=== PATIENT | male | born 1960 | race Caucasian/White ===

== ENCOUNTER 2018-03-25 07:30 | Day surgery (SDC) | payer BC ==
[2018-03-25] MEDS ORDERED: Ringers Lactate 1,000 ML IV ONE ×2 (07:56→09:51)
[2018-03-25] MEDS ORDERED: LIDOCAINE 1% MPF 30 ML VIAL ONE (08:41)
[2018-03-25] MEDS ORDERED: PROPOFOL 200 MG/20 ML VIAL IV ONE ×3 (08:41→09:51)
--- NOTE | 2018-03-25 10:45 | ENDO RPT ---
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 ESTIMATED BLOOD LOSS: None CONSENT: The patient understands the risks and benefits of the procedure and understands that these risks include, but are not limited to: sedation, allergic reaction, infection, perforation and/or bleeding. Alternative means of evaluation and treatment include, among others: physical exam, x-rays, and/or surgical intervention. The patient elects to proceed with this endoscopic procedure. DESCRIPTION OF PROCEDURE: During intra-op preparation period all mechanical medical equipment was checked for proper function. Hand hygiene and appropriate measures for infection prevention was taken. Procedure, possible complications, alternatives including, but not limited to possibility of bleeding, perforation, tear, infection, sepsis, need for surgery, need for blood transfusion, were explained to the patient. After the risks, benefits and alternatives of the procedure were thoroughly explained, Informed consent was verified, confirmed and timeout was successfully executed by the treatment team. The patient was placed in the left lateral position. A digital rectal exam was performed and revealed external hemorrhoids and A digital rectal exam was performed and revealed internal hemorrhoids. After appropriate level of anesthesia, the scope was passed. The EC-[id number] ([id number]) endoscope was introduced through the anus and advanced to the cecum, which was identified by both the appendix and ileocecal valve. The quality of the prep was fair. The instrument was then slowly withdrawn as the colon was fully examined. Scope withdrawal time was 12 minutes. COLON FINDINGS: Long Redundant Colon. Moderate diverticulosis was noted throughout the entire examined colon. No bleeding was noted from the diverticulosis. Small internal and external hemorrhoids were found. Retroflexed views revealed no abnormalities. The scope was then completely withdrawn from the patient and the procedure terminated. ADVERSE EVENTS: There were no complications. IMPRESSIONS: 1. Long Redundant Colon 2. Moderate diverticulosis was noted throughout the entire examined colon 3. Small internal and external hemorrhoids RECOMMENDATIONS: 1. avoid NSAIDS for 2 weeks 2. low fiber / diverticular diet 3. yearly hemoccult starting in 4 years RECALL: Return in 5 year(s) for Colonoscopy. Wellington Ga DR eSigned: Wellington Ga DR 03/25/2018 9:54 AM cc: CPT CODES: ICD9 CODES: PATIENT NAME: Stanislaw Singleton MR#: [id number]
== END 2018-03-25 10:43 | disposition home or self-care (01) ==
LOC: OR 07:30
PROVIDERS: ATTEND Surgery
PROC: 0DJD8ZZ Inspection of Lower Intestinal Tract, Via Natural or Artificial Opening Endoscopic (ICD-10-PCS; principal; 2018-03-25 08:30)
DX: Z12.11 Encounter for screening for malignant neoplasm of colon (principal); K57.90 Diverticulosis of intestine, part unspecified, without perforation or abscess without bleeding; K64.8 Other hemorrhoids; K64.4 Residual hemorrhoidal skin tags; Q43.8 Other specified congenital malformations of intestine; E78.2 Mixed hyperlipidemia; I10 Essential (primary) hypertension; E78.00 Pure hypercholesterolemia, unspecified; I25.10 Atherosclerotic heart disease of native coronary artery without angina pectoris; I25.2 Old myocardial infarction; Z82.49 Family history of ischemic heart disease and other diseases of the circulatory system; Z80.1 Family history of malignant neoplasm of trachea, bronchus and lung; Z80.8 Family history of malignant neoplasm of other organs or systems
CPT/HCPCS: J2704

== ENCOUNTER 2018-09-12 17:41 | Observation (INO) | payer BC ==
--- OUTSIDE RECORDS SUMMARY | 2018-09-12 17:43 | XMS REPORT ---
:1960 Author Organization eClinicalWorks Care Team Providers Name Role Phone Yoan Guevara Provider Role Unavailable Allergies, Adverse Reactions, Alerts Substance Reaction Event Type N.K.D.A. Info Not Available Non Drug Allergy Problems Problem Type Condition Code Onset Dates Condition Status Assessment HTN (hypertension), benign I10 Active Assessment Scrotal mass N50.9 Active Assessment Stented coronary artery Z95.5 Active Assessment Perforation of right tympanic H72.91 Active membrane Assessment Coronary artery disease involving I25.10 Active chitina coronary artery of chitina heart without angina pectoris Problem History of heart attack I25.2 Active Problem Stented coronary artery Z95.5 Active Problem HTN (hypertension), benign I10 Active Assessment Mixed hyperlipidemia E78.2 Active Problem Mixed hyperlipidemia E78.2 Active Problem Coronary artery disease involving I25.10 Active chitina coronary artery of chitina heart without angina pectoris Medications Medication Code Code Instructions Start End Status Dosage System Date Date Ciprodex [facility] 07566532199 0.3-0.1 % Otic Apr 07, Active 4 drops Twice a day 2018 into affected ear Carly Aspirin EC ND 60557362237 81 MG Orally Active 1 tablet Low Dose Once a day Atorvastatin ND 89797309416 80 MG Orally Active 1 tablet Calcium Once a day Results No Known Results Summary Purpose eClinicalWorks Submission
[2018-09-12 18:30] LABS: Absolute Monocytes 0.6 K/uL (0.1-1.3); Absolute Neutrophil 3.5 K/uL (1.8-8.0); Basophils % 0.3 % (0-1.3); Eosinophils % 2.8 % (0-4.4); Hematocrit 48.8 % (39.6-49.0); Lymphocytes % 31.8 % (15.3-44.8); MPV 7.8 fL (7.6-11.3); Monocytes % 9.3 % (3.3-12.3); RBC Red Blood Cell Count 5.24 M/uL (4.33-5.43)
--- NOTE | 2018-09-12 18:32 | RAD REPORT ---
EXAM DESCRIPTION: [place] Single View09/12/2018 6:24 pm CLINICAL HISTORY: Chest pain COMPARISON: none FINDINGS: The lungs appear clear of acute infiltrate. The heart is normal size Mild elevation right hemidiaphragm
[2018-09-12 18:36] LABS: Protime INR 0.91
[2018-09-12 18:47] LABS: ALT/SGPT 50 U/L (12-78); AST/SGOT 25 U/L (15-37); Albumin 4.2 g/dL (3.4-5.0); Alkaline Phosphatase 87 U/L (45-117); BUN Blood Urea Nitrogen 15 mg/dL (7-18); Bicarbonate 27 mmol/L (21-32); Bilirubin Direct 0.2 mg/dL (0-0.2); Bilirubin Total 0.8 mg/dL (0.2-1.0); Glucose Level 114 mg/dL (74-106); Magnesium 2.2 mg/dL (1.8-2.4); NT PRO-BNP 6 pg/mL (<125); Potassium 3.9 mmol/L (3.5-5.1); Protein, Total 6.8 g/dL (6.4-8.2); Sodium Level 142 mmol/L (136-145); Troponin (Emerg Dept Use Only) < 0.02 ng/mL (0.0-0.045)
--- NOTE | 2018-09-12 19:20 | ER ---
Nurse's Notes [facility] Name: Stanislaw Singleton Age: 57 yrs Sex: Male : 1960 Arrival Date: 09/12/2018 Time: 17:42 Bed 26 Private MD: Yoan Guevara Diagnosis: Chest pain, unspecified Presentation: 09/12 17:46 Presenting complaint: Patient states: "I've been having back pains and chest pains aj1 especially when I move and the pain start in the back and its shoots though my body. Its in my ribs, its in my back, its in my chest, its everywhere" Reports that it has been going on for the past couple weeks but has been more severe over the past 4 days. Denies recent illness. Transition of care: patient was not received from another setting of care. Onset of symptoms was September 07, 2018. Risk Assessment: Do you want to hurt yourself or someone else? Patient reports no desire to harm self or others. Initial Sepsis Screen: Does the patient meet any 2 criteria? No. Patient's initial sepsis screen is negative. Does the patient have a suspected source of infection? No. Patient's initial sepsis screen is negative. Care prior to arrival: None. 17:46 Method Of Arrival: Ambulatory aj1 17:46 Acuity: ANABELA 3 aj1 Triage Assessment: 17:50 General: Appears in no apparent distress. comfortable, Behavior is calm, cooperative, aj1 appropriate for age. Pain: Complains of pain in back and chest Pain currently is 2 out of 10 on a pain scale. Neuro: Level of Consciousness is awake, alert, obeys commands, Oriented to person, place, time, situation. Cardiovascular: Reports chest pain, Patient's skin is warm and dry. Respiratory: Airway is patent Respiratory effort is even, unlabored, Respiratory pattern is regular, symmetrical. Historical: - Allergies: 17:49 No Known Allergies; aj1 - Home Meds: 17:49 atorvastatin oral oral [Active]; Aspirin Oral [Active]; aj1 - PMHx: 17:49 Myocardial infarction; aj1 17:50 cardiac stents; aj1 - Immunization history:: Flu vaccine is up to date. - Social history:: Smoking status: Patient/guardian denies using tobacco, Patient/guardian denies using alcohol, street drugs, The patient lives with family. - Ebola Screening: : Patient denies travel to an Ebola-affected area in the 21 days before illness onset. - Family history:: not pertinent. - Hospitalizations: : No recent hospitalization is reported. Screenin:00 Abuse screen: Denies threats or abuse. Denies injuries from another. Nutritional ca1 screening: No deficits noted. Tuberculosis screening: No symptoms or risk factors identified. Fall Risk None identified. Assessment: 18:00 General: Appears in no apparent distress. comfortable, Behavior is calm, cooperative, ca1 appropriate for age. Pain: Complains of pain in right supraclavicular area, right clavicle, anterior aspect of right upper chest and diaphragm Pain radiates to back Pain currently is 4 out of 10 on a pain scale. at worst was 7 out of 10 on a pain scale. Quality of pain is described as throbbing, Pain began 2-3 days ago. Is intermittent. Neuro: Level of Consciousness is awake, alert, obeys commands, Oriented to person, place, time, situation. Cardiovascular: Heart tones S1 S2 present Capillary refill < 3 seconds Patient's skin is warm and dry. Rhythm is sinus rhythm. Respiratory: Airway is patent Respiratory effort is even, unlabored, Respiratory pattern is regular, symmetrical, Breath sounds are clear bilaterally. GI: Abdomen is flat, non-distended, Bowel sounds present X 4 quads. Abd is soft and non tender X 4 quads. : No deficits noted. No signs and/or symptoms were reported regarding the genitourinary system. EENT: No deficits noted. No signs and/or symptoms were reported regarding the EENT system. Derm: Skin is intact, is healthy with good turgor, Skin is pink, warm \\T\\ dry. Musculoskeletal: Circulation, motion, and sensation intact. Capillary refill < 3 seconds, Range of motion: intact in all extremities. 19:00 Reassessment: Patient appears in no apparent distress at this time. Patient and/or ca1 family updated on plan of care and expected duration. Pain level reassessed. Patient is alert, oriented x 3, equal unlabored respirations, skin warm/dry/pink. 19:47 Reassessment: Patient appears in no apparent distress at this time. Patient is alert, ca1 oriented x 3, equal unlabored respirations, skin warm/dry/pink. Pending room assignment. 20:40 Reassessment: Patient appears in no apparent distress at this time. Patient and/or ca1 family updated on plan of care and expected duration. Pain level reassessed. Patient is alert, oriented x 3, equal unlabored respirations, skin warm/dry/pink. 21:10 Reassessment: Patient appears in no apparent distress at this time. Patient is alert, ca1 oriented x 3, equal unlabored respirations, skin warm/dry/pink. Pt wheeled to 4th by naval special warfare medic. Pt is with family. Vital Signs: 17:50 BP 142 / 81; Pulse 80; Resp 18; Temp 98.2(O); Pulse Ox 96% on R/A; Weight 79.38 kg (R); aj1 Height 6 ft. 0 in. (182.88 cm) (R); Pain 2/10; 18:30 BP 148 / 94; Pulse 75; Resp 16 S; Pulse Ox 97% on R/A; ca1 19:00 BP 129 / 82; Pulse 18; Resp 18 S; Temp 98.1(O); Pulse Ox 96% on R/A; ca1 19:30 BP 140 / 87; Pulse 70; Resp 18 S; Temp 98.1(O); Pulse Ox 95% on R/A; ca1 20:40 BP 137 / 93; Pulse 63; Resp 17 S; Temp 98(O); Pulse Ox 96% on R/A; ca1 21:10 BP 132 / 88; Pulse 69; Resp 16 S; Temp 98.1(O); Pulse Ox 96% on R/A; ca1 17:50 Body Mass Index 23.73 (79.38 kg, 182.88 cm) aj1 ED Course: 17:42 Patient arrived in ED. as 17:42 Yoan Guevara DO is Private Physician. as 17:48 Triage completed. aj1 17:50 Arm band placed on Patient placed in an exam room. aj1 17:57 Jose Luis Orr MD is Attending Physician. ma2 18:00 Patient has correct armband on for positive identification. Placed in gown. Bed in low ca1 position. Call light in reach. Side rails up X 1. relief operator on. Pulse ox on. NIBP on. Warm blanket given. 18:05 Patient maintains SpO2 saturation greater than 95% on room air. ca1 18:05 Inserted saline lock: 20 gauge in right antecubital area, using aseptic technique. ca1 Blood collected. 18:23 XRAY Chest (1 view) In Process Unspecified. EDMS 18:37 Pascale Obregon, SUSU is Primary Nurse. ca1 19:19 Jose Luis Lantigua MD is Hospitalizing Provider. ma2 19:43 No provider procedures requiring assistance completed. Patient admitted, IV remains in ca1 place. Administered Medications: 19:25 Drug: Aspirin Chewable Tablet 324 mg Route: PO; ca1 20:41 Follow up: Response: No adverse reaction ca1 Outcome: 19:19 Decision to Hospitalize by Provider. ma2 21:09 Admitted to Tele accompanied by tech, family with patient, via wheelchair, room 420, ca1 with chart, Report called to Lula Emmanuel RN 21:09 Condition: stable 21:09 Instructed on the need for admit. 21:41 Patient left the ED. bb Signatures: Dispatcher [employer] EDMS Sarah Acevedo RN RN Lo Castro as Natali Crockett RN RN bb Jose Luis Orr MD MD [facility] Pascale Obregon, SUSU RN ca1
--- NOTE | 2018-09-12 19:20 | EDPHYS ---
Physician Documentation [facility] Name: Stanislaw Singleton Age: 57 yrs Sex: Male : 1960 Arrival Date: 09/12/2018 Time: 17:42 Bed 26 Private MD: Ismael [facility] ED Physician Jose Luis Orr HPI: 09/12 18:19 This 57 yrs old Male presents to ER via Ambulatory with complaints of Chest ma2 Pain, Back Pain, High Blood Pressure. 18:19 The patient or guardian reports chest pain that is located primarily in the anterior ma2 chest wall, chest diffusely. Onset: gradually, 2 day(s) ago. Associated signs and symptoms: Pertinent positives: Pertinent negatives: abdominal pain, dizziness, lower extremity pain, lightheadedness, nausea. The chest pain is described as aching. Duration: The patient or guardian reports multiple episodes. Severity of pain: At its worst the pain was moderate in the emergency department the pain is unchanged. Historical: - Allergies: 17:49 No Known Allergies; aj1 - Home Meds: 17:49 atorvastatin oral oral [Active]; Aspirin Oral [Active]; aj1 - PMHx: 17:49 Myocardial infarction; aj1 17:50 cardiac stents; aj1 - Immunization history:: Flu vaccine is up to date. - Social history:: Smoking status: Patient/guardian denies using tobacco, Patient/guardian denies using alcohol, street drugs, The patient lives with family. - Ebola Screening: : Patient denies travel to an Ebola-affected area in the 21 days before illness onset. - Family history:: not pertinent. - Hospitalizations: : No recent hospitalization is reported. ROS: 18:19 Constitutional: Negative for fever, chills, and weight loss, Respiratory: Negative for ma2 shortness of breath, cough, wheezing, and pleuritic chest pain. 18:19 ENT: Negative for injury, pain, and discharge, Neck: Negative for injury, pain, and swelling, Abdomen/GI: Negative for abdominal pain, nausea, diarrhea, and constipation, Back: Negative for injury and pain, Skin: Negative for injury, rash, and discoloration, Neuro: Negative for headache, weakness, numbness, tingling, and seizure, Psych: Negative for depression, anxiety, suicide ideation, homicidal ideation, and hallucinations. 18:19 Cardiovascular: Positive for chest pain, Negative for edema, orthopnea, palpitations. Exam: 18:19 Constitutional: This is a well developed, well nourished patient who is awake, alert, ma2 and in no acute distress. Head/Face: Normocephalic, atraumatic. Neck: Trachea midline, no thyromegaly or masses palpated, and no cervical lymphadenopathy. Supple, full range of motion without nuchal rigidity, or vertebral point tenderness. No Meningismus. Chest/axilla: Normal chest wall appearance and motion. Nontender with no deformity. No lesions are appreciated. Cardiovascular: Regular rate and rhythm with a normal S1 and S2. No gallops, murmurs, or rubs. Normal PMI, no JVD. No pulse deficits. Respiratory: Lungs have equal breath sounds bilaterally, clear to auscultation and percussion. No rales, rhonchi or wheezes noted. No increased work of breathing, no retractions or nasal flaring. Abdomen/GI: Soft, non-tender, with normal bowel sounds. No distension or tympany. No guarding or rebound. No evidence of tenderness throughout. MS/ Extremity: Pulses equal, no cyanosis. Neurovascular intact. Full, normal range of motion. Vital Signs: 17:50 BP 142 / 81; Pulse 80; Resp 18; Temp 98.2(O); Pulse Ox 96% on R/A; Weight 79.38 kg (R); aj1 Height 6 ft. 0 in. (182.88 cm) (R); Pain 2/10; 18:30 BP 148 / 94; Pulse 75; Resp 16 S; Pulse Ox 97% on R/A; ca1 19:00 BP 129 / 82; Pulse 18; Resp 18 S; Temp 98.1(O); Pulse Ox 96% on R/A; ca1 19:30 BP 140 / 87; Pulse 70; Resp 18 S; Temp 98.1(O); Pulse Ox 95% on R/A; ca1 20:40 BP 137 / 93; Pulse 63; Resp 17 S; Temp 98(O); Pulse Ox 96% on R/A; ca1 21:10 BP 132 / 88; Pulse 69; Resp 16 S; Temp 98.1(O); Pulse Ox 96% on R/A; ca1 17:50 Body Mass Index 23.73 (79.38 kg, 182.88 cm) aj1 MDM: 17:57 Patient medically screened. ma2 18:19 Differential diagnosis: abnormal EKG, acute myocardial infarction, anxiety, coronary ma2 artery disease congestive heart failure gastroesophageal reflux disease (GERD), stable angina. 19:18 Data reviewed: vital signs, nurses notes. Data interpreted: chick grader:. ma2 Counseling: I had a detailed discussion with the patient and/or guardian regarding: the historical points, exam findings, and any diagnostic results supporting the discharge/admit diagnosis, the presence of at least one elevated blood pressure reading (>120/80) during this emergency department visit, the need for further work-up and treatment in the hospital. ED course: needs admission for acs rule out discussed with dr. perez . 09/12 17:57 Order name: Basic Metabolic Panel; Complete Time: 19:04 ca2 09/12 17:57 Order name: CBC with Diff; Complete Time: 19:04 [facility] 09/12 17:57 Order name: LFT's; Complete Time: 19:04 [facility] 09/12 17:57 Order name: Magnesium; Complete Time: 19:04 ca2 09/12 17:57 Order name: NT PRO-BNP; Complete Time: 19:04 [facility] 09/12 17:57 Order name: PT-INR; Complete Time: 19:04 ca2 09/12 17:57 Order name: Troponin (emerg Dept Use Only); Complete Time: 19:04 ca2 09/12 17:57 Order name: XRAY Chest (1 view); Complete Time: 19:04 [facility] 09/12 20:04 Order name: Echo with Doppler [facility] 09/12 20:04 Order name: Lipid Profile [facility] 09/12 20:04 Order name: Lipid Profile [facility] 09/12 20:04 Order name: Troponin I [facility] 09/12 20:04 Order name: Troponin I [facility] 09/12 20:04 Order name: Troponin I [facility] 09/12 17:57 Order name: EKG; Complete Time: 17:59 ma2 09/12 17:57 Order name: Cardiac monitoring; Complete Time: 18:37 ma2 09/12 17:57 Order name: EKG - Nurse/Tech; Complete Time: 18:37 ma2 09/12 17:57 Order name: IV Saline Lock; Complete Time: 18:37 [facility] 09/12 17:57 Order name: Labs collected and sent; Complete Time: 18:37 [facility] 09/12 17:57 Order name: O2 Per Protocol; Complete Time: 18:37 [facility] 09/12 17:57 Order name: O2 Sat Monitoring; Complete Time: 18:37 [facility] 09/12 20:04 Order name: CONS Physician Consult [facility] 09/12 20:04 Order name: Heart Healthy [facility] 09/12 20:04 Order name: EKG Electrocardiogram [facility] 09/12 20:04 Order name: EKG Electrocardiogram [facility] Administered Medications: 19:25 Drug: Aspirin Chewable Tablet 324 mg Route: PO; ca1 20:41 Follow up: Response: No adverse reaction ca1 Disposition: 09/12/18 19:19 Hospitalization ordered by Jose Luis Perez for Observation. Preliminary diagnosis is Chest pain, unspecified. - Bed requested for Telemetry/MedSurg (observation). - Status is Observation. bb - Condition is Stable. - Problem is new. - Symptoms are unchanged. UTI on Admission? No Signatures: Dispatcher [employer] [facility] Sarah Acevedo RN RN aj1 Natali Crockett RN RN bb Andreina Caballero RN RN cg Jose Luis Orr MD MD ca2 Pascale Obregon RN RN ca1 Corrections: (The following items were deleted from the chart) 20:31 19:19 Hospitalization Ordered by Jose Luis Perez MD for Observation. Preliminary cg diagnosis is Chest pain, unspecified. Bed requested for Telemetry/MedSurg (observation). Status is Observation. Condition is Stable. Problem is new. Symptoms are unchanged. UTI on Admission? No. ma2 21:41 20:31 09/12/2018 19:19 Hospitalization Ordered by Jose Luis Perez MD for Observation. bb Preliminary diagnosis is Chest pain, unspecified. Bed requested for Telemetry/MedSurg (observation). Status is Observation. Condition is Stable. Problem is new. Symptoms are unchanged. UTI on Admission? No. cg
[2018-09-12] MEDS ORDERED: ASPIRIN 81 MG CHEWABLE TABLET ONE (19:48)
[2018-09-12] MEDS ORDERED: MORPHINE 4 MG/ML SYR IV PRN (19:58)
[2018-09-12] MEDS ORDERED: ALPRAZOLAM 0.25 MG TABLET PO PRN (19:58)
[2018-09-12] MEDS ORDERED: ACETAMINOPHEN 500 MG TAB PO PRN (19:58)
[2018-09-12] MEDS: METOPROLOL TAR 50 MG TAB PO SCH (22:50)
[2018-09-13 00:52] VITALS: BMI 23.7
[2018-09-13 05:23] LABS: Urine Appearance CLEAR; Urine Bilirubin NEGATIVE (NEG); Urine Blood NEGATIVE (NEG); Urine Color YELLOW; Urine Glucose NEGATIVE (NEG); Urine Protein NEGATIVE (NEG); Urine Specific Gravity 1.015 (1.005-1.030); Urine pH 6.5 (5.0-7.0)
[2018-09-13 05:36] LABS: Urine Microscopic Reflex NO UMIC
--- NOTE | 2018-09-13 06:16 | EKG ---
Test Date: 2018-09-12 Test Time: 18:24:52 Modeling Agent: ANJELICA MEASUREMENT RESULTS: Intervals: Rate: 66 CO: 194 QRSD: 106 QT: 394 QTc: 413 [place]: P: 59 CO: 194 QRS: 21 T: 32 INTERPRETIVE STATEMENTS: Normal sinus rhythm Normal ECG No previous ECG available for comparison Electronically Signed On 09-13-18 06:16:00 CDT by Abdulaziz Marina
[2018-09-13] MEDS ORDERED: ENOXAPARIN 40 MG/0.4 ML SQ SCH (09:00)
[2018-09-13] MEDS ORDERED: ASPIRIN EC 81 MG TAB PO SCH (09:00)
[2018-09-13] MEDS ORDERED: REGADENOSON 0.4 MG/5 ML SYR IV ONE (09:32)
[2018-09-13 10:06] VITALS: O2SAT 94
--- NOTE | 2018-09-13 11:08 | ECHO ---
HEIGHT: 6 ft 0 in WEIGHT: 175 lb 0 oz DATE OF STUDY: 09/13/[address]: Jose Luis Lantigua MD 2-DIMENSIONAL: YES M.MODE: YES DOPPLER: YES COLOR FLOW: YES TDS: NO PORTABLE: NO DEFINITY: NO BUBBLE STUDY: NO DIAGNOSIS: CHEST PAIN/ RULE OUT ACUTE CORONARY SYNDROME CARDIAC HISTORY: CATHERIZATION: YES SURGERY: NO PROSTHETIC VALVE: NO PACEMAKER: NO MEASUREMENTS (cm) DIASTOLIC (NORMALS) SYSTOLIC (NORMALS) IVSd 0.7 (0.6-1.2) LA Diam 3.2 (1.9-4.0) LVEF 60% LVIDd 4.9 (3.5-5.7) LVIDs 3.4 (2.0-3.5) %FS 32% LVPWd 0.9 (0.6-1.2) Ao Diam 3.0 (2.0-3.7) 2 DIMENSIONAL ASSESSMENT: RIGHT ATRIUM: NORMAL LEFT ATRIUM: NORMAL RIGHT VENTRICLE: NORMAL LEFT VENTRICLE: NORMAL TRICUSPID VALVE: NORMAL MITRAL VALVE: NORMAL PULMONIC VALVE: NORMAL AORTIC VALVE: NORMAL PERICARDIAL EFFUSION: NONE AORTIC ROOT: NORMAL LEFT VENTRICULAR WALL MOTION: NORMAL. DOPPLER/COLOR FLOW: NORMAL. COMMENTS: NORMAL 2D ECHO WITH DOPPLER. NO WALL MOTION ABNORMALITY. NO EFFUSION. TECHNOLOGIST: WILMER FLYNN
--- NOTE | 2018-09-13 11:13 | P.HP ---
Certification for Inpatient Patient admitted to: Observation With expected LOS: <2 Midnights Patient will require the following post-hospital care: None Practitioner: I am a practitioner with admitting privileges, knowledge of patient current condition, hospital course, and medical plan of care. Services: Services provided to patient in accordance with Admission requirements found in Title 42 Section 412.3 of the Code of Federal Regulations Patient History Date of Service: 09/12/18 Reason for admission: Chest pain rule out acute coronary syndrome History of Present Illness: Patient is a 57-year-old gentleman came to the hospital with chest discomfort. Pain was mainly in the sternal region. Radiated to his back. He states he had similar chest pain when he had his myocardial infarction roughly 15 years ago. He decided to come into the ER for further evaluation. His initial EKG and troponins did not reveal any abnormality. There is no evidence of an old infarct on his EKG either. However, his pain was still occurring and so decision was made to admit him to the hospital because of his prior myocardial infarction. At this time, we will go ahead and proceed with a echocardiogram and stress test. If this is negative then patient can follow up at home. He has not been as active and has been getting some treatment with his chiropractor. He has been having some issues with his upper back as well and he is not sure if the pain was related to a musculoskeletal issue. However , in light of his risk factors it may be best make sure patient does not have any impending cardiac event with echocardiogram and stress testing. Allergies No Known Allergies Allergy (Verified 09/12/18 22:38) Home Medications: Aspirin [Aspirin EC 81 MG] 162 mg PO DAILY 03/25/18 Atorvastatin Calcium 80 mg PO DAILY 03/25/18 - Past Medical/Surgical History Diabetic: No -: hyperlipidemia -: [place] 2009 -: cardiac stents x2 in 2009 -: right ear perforated eardrum - Family History Father Medical History: Lung disease Mother Notes: brain aneurysm - Social History Smoking Status: Never smoker Alcohol use: Yes CD- Drugs: No Caffeine use: Yes Place of Residence: Home Review of Systems 10-point ROS is otherwise unremarkable Physical Examination - Vital Signs Temperature: 97.8 F Blood Pressure: 114/78 Pulse: 70 Respirations: 24 Pulse Ox (%): 94 - Physical Exam General: Alert, In no apparent distress, Oriented x3 HEENT: Atraumatic, PERRLA, Mucous membr. moist/pink, EOMI, Sclerae nonicteric Neck: Supple, 2+ carotid pulse no bruit, No LAD, Without JVD or thyroid abnormality Respiratory: Clear to auscultation bilaterally, Normal air movement Cardiovascular: Regular rate/rhythm, Normal S1 S2 Gastrointestinal: Normal bowel sounds, Soft and benign, Non-distended, No tenderness Musculoskeletal: No clubbing, No swelling, No tenderness Integumentary: No rashes Neurological: Normal gait, Normal speech, Normal strength at 5/5 x4 extr, Normal tone, Sensation intact, Cranial nerves 3-12 intact, Normal affect Lymphatics: No axilla or inguinal lymphadenopathy - Studies Laboratory Data (last 24 hrs) 09/12/18 18:20: Triglycerides 189 H, Cholesterol 159, HDL Cholesterol 48, Cholesterol/HDL Ratio 3.31 09/12/18 18:20: PT 10.8, INR 0.91 09/12/18 18:20: WBC 6.3, Hgb 16.4, Hct 48.8, Plt Count 231 09/12/18 18:20: Sodium 142, Potassium 3.9, BUN 15, Creatinine 1.15, Glucose 114 H, Magnesium 2.2, Total Bilirubin 0.8, AST 25, ALT 50, Alkaline Phosphatase 87 Assessment & Plan - Problems (Diagnosis) (1) Chest pain, rule out acute myocardial infarction Current Visit: Yes Status: Acute (2) CAD (coronary artery disease) Current Visit: Yes Status: Acute (3) HTN (hypertension) Current Visit: Yes Status: Acute - Plan 1. Serial troponins and EKG 2. Cardiology consultation 3. Echocardiogram and inpatient stress test(pending cardiology evaluation) 4. Anti-platelet therapy, anti coagulation, beta-riley, statin, and O2 as needed 5. IV morphine for pain 6. Nitro p.r.n. 7. Anti-inflammatory if cardiac work-up negative Discharge Plan: Home Plan to discharge in: 24 Hours - Advance Directives Does patient have a Living Will: No Does patient have a Durable POA for Healthcare: No - Code Status/Comfort Care Code Status Assessed: Yes Code Status: Full Code Critical Care: No Time Spent Managing PTS Care (In Minutes): 40
--- NOTE | 2018-09-13 12:29 | RAD REPORT ---
EXAM DESCRIPTION: NM - Rest Stress Cardiac Imaging - 09/13/2018 12:22 pm CLINICAL HISTORY: CHEST PAIN Chest pain. COMPARISON: No comparisons TECHNIQUE: The patient was administered approximately 10mCi of Tc 99m Sestamibi prior to resting SPE CT imaging of the heart. The patient was then administered approximately 30 mCi of Tc 99m Sestamibi f ollowing exercise or pharmacologic stress. Multiplanar SPECT images were reviewed. FINDINGS: No stress induced ischemic defect is seen to suggest stress induced ischemia. No fixed def ect is seen to suggest hibernating myocardium or scarred myocardium. The end diastolic volume is 94 ml, the end systolic volume is 52 ml, and the ejection fraction is 45 %. IMPRESSION: No stress induced ischemia.
[2018-09-13] MEDS: METOPROLOL TAR 50 MG TAB PO SCH (13:50)
--- NOTE | 2018-09-13 14:34 | P.SSS ---
Patient History Date of Service: 09/13/18 Primary Care Provider: Dr. Ismael Oh Reason for admission: Chest pain rule out acute coronary syndrome History of Present Illness: Patient is a 57-year-old gentleman came to the hospital with chest discomfort. Pain was mainly in the sternal region. Radiated to his back. He states he had similar chest pain when he had his myocardial infarction roughly 15 years ago. He decided to come into the ER for further evaluation. His initial EKG and troponins did not reveal any abnormality. There is no evidence of an old infarct on his EKG either. However, his pain was still occurring and so decision was made to admit him to the hospital because of his prior myocardial infarction. At this time, we will go ahead and proceed with a echocardiogram and stress test. If this is negative then patient can follow up at home. He has not been as active and has been getting some treatment with his chiropractor. He has been having some issues with his upper back as well and he is not sure if the pain was related to a musculoskeletal issue. However, in light of his risk factors it may be best make sure patient does not have any impending cardiac event with echocardiogram and stress testing. Allergies No Known Allergies Allergy (Verified 09/12/18 22:38) Home medications list reviewed: Yes Home Medications: Aspirin [Aspirin EC 81 MG] 162 mg PO DAILY 03/25/18 Atorvastatin Calcium 80 mg PO DAILY 03/25/18 - Past Medical/Surgical History Diabetic: No -: hyperlipidemia -: [place] 2009 -: cardiac stents x2 in 2009 -: right ear perforated eardrum - Family History Father -: Lung disease Mother Notes: brain aneurysm - Social History Smoking Status: Never smoker Alcohol use: Yes CD- Drugs: No Caffeine use: Yes Place of Residence: Home Review of Systems 10-point ROS is otherwise unremarkable Physical Examination - Vital Signs Temperature: 97.8 F Blood Pressure: 131/80 Pulse: 71 Respirations: 16 Pulse Ox (%): 95 - Physical Exam General: Alert, In no apparent distress, Oriented x3 HEENT: Atraumatic, PERRLA, Mucous membr. moist/pink, EOMI, Sclerae nonicteric Neck: Supple, 2+ carotid pulse no bruit, No LAD, Without JVD or thyroid abnormality Respiratory: Clear to auscultation bilaterally, Normal air movement Cardiovascular: Regular rate/rhythm, Normal S1 S2 Gastrointestinal: Normal bowel sounds, No tenderness Musculoskeletal: No tenderness Integumentary: No rashes Neurological: Normal gait, Normal speech, Normal strength at 5/5 x4 extr, Normal tone, Normal affect Lymphatics: No axilla or inguinal lymphadenopathy - Studies Laboratory Data (last 24 hrs) 09/12/18 18:20: Triglycerides 189 H, Cholesterol 159, HDL Cholesterol 48, Cholesterol/HDL Ratio 3.31 09/12/18 18:20: PT 10.8, INR 0.91 09/12/18 18:20: WBC 6.3, Hgb 16.4, Hct 48.8, Plt Count 231 09/12/18 18:20: Sodium 142, Potassium 3.9, BUN 15, Creatinine 1.15, Glucose 114 H, Magnesium 2.2, Total Bilirubin 0.8, AST 25, ALT 50, Alkaline Phosphatase 87 - Diagnosis (Problem(s)) (1) Chest pain, rule out acute myocardial infarction Current Visit: Yes Status: Resolved (2) CAD (coronary artery disease) Current Visit: Yes Status: Chronic Qualifiers: Coronary Disease-Associated Artery/Lesion type: [place] artery [place] vs. transplanted heart: [place] heart Associated angina: without angina Qualified Code(s): I25.10 - Atherosclerotic heart disease of [place] coronary artery without angina pectoris (3) HTN (hypertension) Current Visit: No Status: Chronic Qualifiers: Hypertension type: essential hypertension Qualified Code(s): I10 - Essential (primary) hypertension Treatment Summary: Patient was admitted for Chest pain. Cardiology was consulted. ACS was ruled out with negative troponin x 3, Normal ECHO, Negative cardiac stress test. Patient was then cleared for discharge from cardiology point of view. His diagnosis/treatment plan was explained to him. All questions were answered and he verbalized understanding. He was discharged home in a safe and stable manner. - Disposition Discharge Date: 09/13/18 Disposition: ROUTINE DISCHARGE Condition: GOOD Consultations: Cardiology. Patient Discharge Instructions: Please follow up with your primary care physician in 2-3 days. Please return to the [facility] room for worsening symptoms. Diet: AHA Activity: Ad marcia Time Spent Managing Pts Care (In Minutes): 45
--- NOTE | 2018-09-13 14:54 | TREADPHA ---
DX: CHEST PAIN Date of Study: 09/13/2018 Ht: 6 0 Wt: 175 lb 0 oz Consulting Physician: TAMI MEDICATIONS: TYLENOL, XANAX, ASPIRIN, LOVENOX, LOPRESSOR HISTORY: MYOCARDIAL INFARCTION, STENTS X2 PHYSICIAL EXAMINATION: RESTING B.P.: 111/70 RESTING H.R.: 64 RESTING EKG: NORMAL PROTOCOL: LEXISCAN EXERCISE TIME: 3:30 B.P. AT PEAK STRESS: 118/68 IMPRESSION: NO SUPRAVENTRICULAR TACHYCARDIA OR VENTRICULAR TACHYCARDIA NOTED. NO ARRYTHMIAS. DENIES CHEST PAIN. LEXISCAN STRESS TEST PERFORMED PER PROTOCOL. CARDIOLITE INJECTED PER PROTOCOL. SEE NUCLEAR MEDICINE. REPORT.
[2018-09-13 17:13] VITALS: BP 127/71; TEMP 97.5
--- NOTE | 2018-09-14 00:38 | CON ---
Date of Consultation: 09/13/[address] Bueno's service on 09/12/2018. I saw the patient on 09/13/2018. Reason For Consultation: Chest pain. History Of Present Illness: Mr. Singleton is a 57-year-old white male with history of coronary artery disease status post PCI in 2009 in [place]. Has a history of dyslipidemia. He came in with chest p ain from the back radiating to the front, which was exacerbated by movement. Denies nausea, vomiting , diaphoresis, PND, orthopnea, pedal edema, palpitations, or syncope. By the time I saw him, he had a negative chest x-ray, EKG, and labs including troponin, CPKs, and MBs. He was now asymptomatic. Allergies: NONE. Review of Systems: Negative. Social History: Negative. Family History: Noncontributory. Medications: At home include aspirin and atorvastatin. Physical Examination: General: Mr. Singleton is very pleasant, in no acute distress. Vital Signs: Stable, afebrile. HEENT: Negative. Neck: Supple with no bruit, lymphadenopathy, JVD, or thyromegaly. Chest: Clear to auscultation and percussion. Cardiac: Revealed a regular rhythm and rate without any murmurs, gallops, or rubs. Abdomen: Benign. Extremities: Revealed no clubbing, cyanosis, or edema. Diagnostic Data: Normal. Impression And Plan: 1.Atypical chest pain, probably musculoskeletal. 2.History of coronary artery disease, status post stent in 2009, possible followup. 3.Dyslipidemia. An echocardiogram and a Lexiscan were ordered already by Dr. Bueno for this morning . We will see what these show prior to making final decisions. 4.Mr. Singleton, according to him, has an appointment coming up with me in the office in the near [facility]. I would continue to follow on and keep an eye on his coronary artery disease status in the [facility]. SHAHID/NARCISA Voice ID: [id number] Report ID: [id number]
== END 2018-09-13 17:33 | disposition home or self-care (01) ==
LOC: ER 17:41 → ERHOLD 20:38 → 4TH 21:14
PROVIDERS: ADMIT Hospitalist; ATTEND Family Medicine
DX: R07.89 Other chest pain (principal); I25.10 Atherosclerotic heart disease of native coronary artery without angina pectoris; I25.2 Old myocardial infarction; I10 Essential (primary) hypertension; Z95.5 Presence of coronary angioplasty implant and graft; E78.5 Hyperlipidemia, unspecified; Z79.82 Long term (current) use of aspirin; Z79.899 Other long term (current) drug therapy
CPT/HCPCS: 36415; 71045; 78452; 80048; 80061; 80076; 81003; 83735; 83880; 84484; 85025; 85610; 93005; 93017; 93306; 99285; A9500; G0378; J1650; J2785